=== PATIENT | female | born 1940 | race Caucasian/White ===

== ENCOUNTER → 2017-07-16 | Outpatient (CLI) | payer MEDICARE ==
[~2017-07-16] MED LIST: ASPI-1012 PO; ASPI-1026 PO; ATEN25TA PO; CHOL100044 PO; CHOL100046 PO; CLOP75TA14 PO; CLOP75TA32 PO; CYAN-35 PO; CYAN250010 PO; FOLI0.8T PO; FURO20TA4 PO; LEVO25TA54 PO; LEVO50 PO; MAGN400C PO; MAGN400T6 PO; NITR0.4T SL; OMEG1CAP43 PO; OMEG1CAP8 PO; OMEP40CA37 PO; POTA-79 PO; POTA20PA32 PO; ROSU40 PO; ROSU40TA28 PO; VALS80TA2 PO
== END | disposition home or self-care (01) ==
LOC: RAH 08:03
PROVIDERS: ATTEND Internal Medicine
DX: K82.8 Other specified diseases of gallbladder (principal); R94.5 Abnormal results of liver function studies; R79.89 Other specified abnormal findings of blood chemistry
CPT/HCPCS: 76705

== ENCOUNTER 2017-08-05 09:56 | Emergency (ER) | payer MEDICARE ==
[2017-08-05 11:10] LABS: BASOPHILS % (AUTO) 0.9 % (0.0-5.0); EOSINOPHILS % (AUTO) 2.5 % (0.0-8.0); HEMATOCRIT 28.5 % (36-48); LYMPHOCYTES % (AUTO) 18.6 % (21.0-51.0); MEAN CORPUSCULAR HEMOGLOBIN 31.8 pg (27.0-33.0); MEAN CORPUSCULAR HGB CONC 33.6 g/dL (32.0-36.0); MEAN CORPUSCULAR VOLUME 94.6 fL (79-99); MONOCYTES % (AUTO) 7.2 % (3.0-13.0); NEUTROPHILS % (AUTO) 70.8 % (40.0-77.0); PLATELET COUNT (AUTO) 163 K/uL (130-400); RED BLOOD CELL COUNT(AUTO) 3.01 MIL/uL (4.00-5.50); RED CELL DISTRIBUTION WIDTH 16.6 % (11.0-15.5)
[2017-08-05 11:12] LABS: CREATININE 1.2 mg/dL (0.5-1.5); POTASSIUM 4.9 mmol/L (3.5-5.1)
[2017-08-05 11:17] LABS: ALBUMIN 2.8 g/dL (3.5-5.0); BILIRUBIN,TOTAL 0.4 mg/dL (0.2-1.0); TOTAL PROTEIN, SERUM 6.1 g/dL (6.0-8.3)
[2017-08-05 11:25] LABS: PARTIAL THROMBOPLASTIN TIME 24.5 SEC (26.3-35.5); PROTHROMBIN TIME 10.5 SEC (9.6-11.6)
[2017-08-05] MEDS ORDERED: TRAMADOL HCL 50 MG TABLET ONE (12:24)
== END 2017-08-05 12:53 | disposition home or self-care (01) ==
LOC: EDH 09:56
DX: L03.115 Cellulitis of right lower limb (principal); E78.5 Hyperlipidemia, unspecified; I10 Essential (primary) hypertension; R60.0 Localized edema; E07.9 Disorder of thyroid, unspecified; Z90.710 Acquired absence of both cervix and uterus; Z98.890 Other specified postprocedural states; Z87.891 Personal history of nicotine dependence
CPT/HCPCS: 36415; 73590; 73620; 80053; 85025; 85610; 85651; 85730; 87040; 93971